=== PATIENT | female | born 1960 | race Hispanic/Latino ===

== ENCOUNTER 2018-08-03 10:06 | Emergency (ER) | payer OTHER, MEDICAID, SELFPAY ==
[2018-08-03 10:17] VITALS: BP 115/53; PULSE 82; RESP 16; TEMP 36.6; O2SAT 100
--- NOTE | 2018-08-03 10:32 | PC.NURSE ---
provider at bedside for eye exam.
--- NOTE | 2018-08-03 10:47 | ED.EYEPROB ---
HPI - Eye Problem General Chief complaint: Eye Problems Stated complaint: White film and pain Left eye Time Seen by Provider: 08/03/18 10:19 Source: patient Mode of arrival: ambulatory Limitations: no limitations History of Present Illness HPI Narrative: Patient is a 58-year-old female who presents with painful vision loss in her left eye. She says that for the last couple weeks she has had some eye twinges. However today she woke up and feels like pain is significantly worse. She has blurry vision out of that eye there is a definite ache in her eye. She does not feel like a curtain is closing she feels like it is blurry she feels like she sees a white spot around light. She is otherwise healthy. She denies any trauma. MD chief complaint: eye pain Related Data Previous Rx's Medication Instructions Recorded acetazolamide 250 mg PO TID #30 tab 08/03/18 prednisolone acetate 1 drop EYE-LEFT BID #10 ml 08/03/18 Review of Systems Review of Systems All systems reviewed & are unremarkable except as noted in HPI and below Eyes Reports as per HPI, Reports change in vision, Reports photophobia and Reports spots in vision Gastrointestinal Gastrointestinal: Denies abdominal pain, Denies change in bowel habits, Denies diarrhea, Denies nausea and Denies vomiting Musculoskeletal Denies back pain, Denies muscle weakness, Denies numbness and Denies tingling Neurologic Denies numbness and Denies tingling PFSH Social History Smoking Status: Former smoker Exam Initial Vital Signs Initial Vital Signs: Vital Signs Temperature 97.8 F 08/03/18 10:17 Pulse Rate 82 08/03/18 10:17 Respiratory Rate 16 08/03/18 10:17 Blood Pressure 115/53 L 08/03/18 10:17 Pulse Oximetry 100 08/03/18 10:17 Const General: healthy appearing Nutritional Appearance: average body habitus Orientation: alert, awake and oriented x3 HENMT Head: normal to inspection and normocephalic Eyes Periorbital: periorbital findings normal Conjunctivae: conjunctivae normal (Is stained with fluorescein no dye uptake) Pupils: dilated on the left EOM: EOM intact bilaterally Direct ophthalmoscopy: normal light reflex Other: Pressure in left eye 55, pressure in right eye 37 Bedside ultrasound of left eye did not reveal retinal detachment or vitreous humor tear Chest Chest: normal inspection of the chest and normal palpation of entire chest wall Resp Effort & Inspection: normal respiratory effort and able to speak in complete sentences Cardio Pulses: normal peripheral pulses Skin General: no rashes or lesions noted, No jaundice and No petechiae Neuro General: alert, awake, oriented x3 and deep tendon reflexes 2+ bilaterally Cranial Nerves: CN's II-XI intact bilaterally Course Orders Ordered: Discontinued Medications Acetazolamide (Diamox) 500 mg PO NOW ONE Stop: 08/03/18 11:02 Last Admin: 08/03/18 11:12 Dose: 500 mg Brimonidine/Timolol (Combigan 0.2%-0.5% Eye Drops) 1 drops EYE-BOTH NOW ONE Stop: 08/03/18 11:42 Last Admin: 08/03/18 11:58 Dose: 1 drops Brimonidine/Timolol (Combigan 0.2%-0.5% Eye Drops) 1 drops EYE-LEFT NOW ONE Stop: 08/03/18 12:26 Last Admin: 08/03/18 12:25 Dose: 1 drops Brimonidine/Timolol (Combigan 0.2%-0.5% Eye Drops) 1 drops EYE-LEFT NOW ONE Stop: 08/03/18 12:56 Last Admin: 08/03/18 12:55 Dose: 1 drops Dorzolamide HCl (Trusopt) 1 drops EYE-BOTH NOW ONE Stop: 08/03/18 12:24 Last Admin: 08/03/18 12:26 Dose: 1 drops Dorzolamide HCl (Trusopt) 1 drops EYE-LEFT NOW ONE Stop: 08/03/18 13:01 Last Admin: 08/03/18 13:00 Dose: 1 drops Latanoprost (Xalatan) 1 drops EYE-BOTH NOW ONE Stop: 08/03/18 11:48 Last Admin: 08/03/18 11:53 Dose: 1 drops Latanoprost (Xalatan) 1 drops EYE-LEFT NOW ONE Stop: 08/03/18 12:21 Last Admin: 08/03/18 12:20 Dose: 1 drops Latanoprost (Xalatan) 1 drops EYE-LEFT NOW ONE Stop: 08/03/18 12:51 Last Admin: 08/03/18 12:50 Dose: 1 drops Pilocarpine HCl (Isopto Carpine 2%) 1 drops EYE-LEFT Q30MIN AWA Stop: 08/06/18 11:16 Last Admin: 08/03/18 11:21 Dose: 1 drops Timolol Maleate (Timoptic 0.5%) 1 drops EYE-LEFT DAILY AWA Timolol Maleate (Timoptic 0.5%) 1 drops EYE-LEFT DAILY AWA Last Admin: 08/03/18 11:16 Dose: 1 drop Vital Signs - 8 hr 08/03/18 10:17 08/03/18 11:28 08/03/18 14:07 Temperature 97.8 F Pulse Rate 82 68 56 L Respiratory Rate 16 17 20 Blood Pressure 115/53 L Blood Pressure [Left Arm] 111/48 L 89/54 L Pulse Oximetry 100 100 100 08/03/18 14:30 Temperature Pulse Rate 61 Respiratory Rate 14 Blood Pressure Blood Pressure [Left Arm] 94/40 L Pulse Oximetry 100 MDM - Eye Problem MDM Narrative Medical decision making narrative: Dr. Montanez, ophthalmology at [facility] has been kind enough to consult for patient. Recommend Diamox 500 mg x1, timolol drop x1, Dorzolamide x 1 drop, latanoprost x1 drop. 1 drop every 5 min of each medication and then repeat pressure 15 min after. Unfortunately the 1st time around patient got timolol and pilocarpineand diamox. Repeat pressure at that time was 50 in the left eye and 27 in the right He was called with the results. 2nd time the patient got Combigan and xalatan, repeat pressure was 47 in the left 3rd time patient got Combigan, xalatan, truspot repeat pressure 39 in the left, 18 in the right-patient started being able to see and read overall her pain started feeling better. 4th time patient got Combigan, xalatan, truspot repeat pressure 27 than the left and 19 in the right updated on patient's of results. His he recommends discharging her on the medications along with prednisone acetate 1 drop twice a day. He requests to see patient tomorrow in his office in [place]. Patient overall continues to feel better At discharge patient's blood pressure did decrease quite a bit to the 70s. She was given food an oral fluids. At discharge it was 94 she overall felt better ready and able to go. Her eye felt the same. Discharge Plan Departure Patient Disposition: Home Clinical Impression: Acute angle-closure glaucoma of left eye Discharge Date/Time: 08/03/18 14:50 Interventions: ED Discharge Assessment Last Done: 08/03/18 14:49 Instructions: Angle-Closure Glaucoma Activity Restrictions/Additional Instructions: 7:[address]Jean Montanez's office in [place] [phone] for appointment tomorrow [id number] Diamox 250 mg 3 times a day Combigan (Brimonidine/timolol) 1 drop 3 times a day Trusopt (Dorzolamide) 1 drop 3 times a day Xalatan (Latanoprost) 1 drop at bedtime return to ER if you should have any worsening vision increased eye pain or any other concerning symptoms Prescriptions: New prednisolone acetate 1 % drops,suspension 1 drop EYE-LEFT BID Qty: 10 RF: 0 acetazolamide 250 mg tablet 250 mg PO TID Qty: 30 RF: 0 Referrals: [place] Montanez [Non-Staff] - Jj Monzon [Primary Care Provider] -
[2018-08-03] MEDS: acetaZOLAMIDE 250 MG TABLET 500 MG PO (11:12)
[2018-08-03] MEDS: TIMOLOL 0.5% OPHTH 1 DROPS EYE-LEFT (11:16)
[2018-08-03] MEDS: PILOCARPINE 2% OPHTH DROPS 15 ML 1 DROPS EYE-LEFT (11:21)
[2018-08-03 11:28] VITALS: BP 111/48; PULSE 68; RESP 17; O2SAT 100
[2018-08-03] MEDS: LATANOPROST 0.005% OPHTH 2.5 ML 1 DROPS EYE-BOTH (11:53)
[2018-08-03] MEDS: BRIMONIDINE/TIMOLOL 0.2%/0.5% OPHTH 5 ML 1 DROPS EYE-BOTH (11:58)
[2018-08-03] MEDS: LATANOPROST 0.005% OPHTH 2.5 ML 1 DROPS EYE-LEFT ×2 (12:20→12:50)
[2018-08-03] MEDS: BRIMONIDINE/TIMOLOL 0.2%/0.5% OPHTH 5 ML 1 DROPS EYE-LEFT ×2 (12:25→12:55)
[2018-08-03] MEDS: DORZOLAMIDE 2% OPHTH 10 ML 1 DROPS EYE-BOTH (12:26)
[2018-08-03] MEDS: DORZOLAMIDE 2% OPHTH 10 ML 1 DROPS EYE-LEFT (13:00)
[2018-08-03 14:07] VITALS: BP 89/54; PULSE 56; RESP 20; O2SAT 100
[2018-08-03 14:30] VITALS: BP 94/40; PULSE 61; RESP 14; O2SAT 100
== END 2018-08-03 14:50 | disposition home or self-care (01) ==
PROVIDERS: Emergency Provider Emergency Medicine; PCP Family Medicine
DX: H40.212 Acute angle-closure glaucoma, left eye (principal)
CPT/HCPCS: 99283

== ENCOUNTER 2020-03-01 04:14 | Emergency (ER) | payer OTHER, MEDICAID, SELFPAY ==
--- NOTE | 2020-03-01 04:19 | ED_ITS ---
HPI - Eye Problem General Chief complaint: Headache Stated complaint: PAIN THROUGH EYE AREA AROUND TO BACK OF HEAD Time Seen by Provider: 03/01/20 04:18 Source: patient Mode of arrival: Ambulatory Limitations: no limitations History of Present Illness HPI Narrative: 60F non smoker with history of acute angle closure glaucoma presents with the chief complaint of severe TOVAR with left eye pain over the course of the day. She denies any injury and states this feels somewhat like prior episodes of glaucoma, but perhaps a bit different. She admits that she hasn't been taking her meds regularly and had blurring of vision, pain, and a red eye earlier today and went to see her ophtho (Dr. Montanez in [place]) and her pressures were OS 30, OD 15. Her symptoms became much worse after the visit. She is nauseated but has not vomited. She does not wear contacts. She denies provocation or palliation. She has had some runny nose and maybe some post nasal drip, but is otherwise well and free of complaint. MD chief complaint: eye pain and vision change Onset (ago): hour(s) Onset description: unknown Duration: improved Location: left eye Eye Symptoms: decreased vision and blurry vision Mechanism: none Severity: moderate If Pain, Quality: aching Context: recent URI Associated symptoms: none Treatments Prior to Arrival: none Related Data Patient tetanus UTD: Yes Previous Rx's Medication Instructions Recorded acetazolamide 250 mg PO TID #30 tab 08/03/18 prednisolone acetate 1 drop EYE-LEFT BID #10 ml 08/03/18 prednisone See Rx Instructions .ROUTE 03/01/20 .COMPLEX #30 tab Allergies Allergy/AdvReac Type Severity Reaction Status Date / Time No Known Drug Allergies Allergy Verified 03/01/20 04:31 Review of Systems Constitutional Constitutional: Denies chills, Denies fatigue, Denies fever(s), Denies frequent falls, Denies lethargy and Denies weakness Eyes Eyes: Reports blurry vision, Reports change in vision, Denies eye discharge, Denies irritation and Denies loss of vision ENT Ears, Nose, Mouth, and Throat: Denies change in voice, Denies dizziness, Denies neck pain, Denies sore throat and Denies throat swelling Cardiovascular Cardiovascular: Denies chest pain, Denies irregular heart rhythm, Denies lightheadedness, Denies palpitations, Denies dyspnea, Denies dyspnea on exertion and Denies orthopnea Respiratory Respiratory: Denies cough, Denies dyspnea, Denies dyspnea on exertion and Denies wheezing Gastrointestinal Gastrointestinal: Denies abdominal pain, Denies change in bowel habits, Denies diarrhea, Denies nausea and Denies vomiting Musculoskeletal Musculoskeletal: Denies neck pain and Denies numbness Integumentary/Breasts Skin/Breast: Denies pruritus, Denies erythema, Denies rash and Denies wounds Neurologic Neurologic: Denies behavioral changes, Denies confusion, Denies dizziness, Denies frequent falls, Denies loss of vision, Denies numbness and Denies weakness Psychiatric Psychiatric: Denies anxiety, Denies behavioral changes, Denies confusion, Denies depression, Denies homicidal ideation and Denies suicidal ideation Endocrine Endocrine: Denies fatigue, Denies flushing and Denies palpitations Hematologic/Lymphatic Hematologic/Lymphatic: Denies easy bruising Allergic/Immunologic Allergic/Immunologic: Denies urticaria, Denies throat swelling and Denies wheezing Patient History Social History Smoking Status: Former smoker Smoking Status: Former smoker alcohol intake frequency: 0-2 drinks per day Substance Use Type: does not use Exam Narrative Exam Narrative: GENERAL: [60] year old patient appears stated age. Well- nourished, well-developed patient, in moderate distress. HEAD: Atraumatic. Normocephalic. EYES: Pupils equal round and reactive. Extraocular motions intact. No scleral icterus. No injection or drainage. Visual acuity noted in chart. Pressures with TonoPen (OS 35, OD 16) ENT: Nose without bleeding, purulent drainage. Throat without erythema, tonsillar hypertrophy or exudate. Airway patent. NECK: Trachea midline. Non tender CARDIOVASCULAR: Regular rate and rhythm without murmurs, gallops, or rubs. RESPIRATORY: Clear to auscultation. Breath sounds equal bilaterally. No wheezes, rales, or rhonchi. GASTROINTESTINAL: Abdomen soft, non-tender, nondistended. EXTREMITIES: No edema or joint tenderness. BACK: Nontender without deformity or crepitance. No flank tenderness. NEURO: AOx3. SKIN: No rash or erythema of visible areas Initial Vital Signs Initial Vital Signs: Vital Signs Temperature 97.9 F 03/01/20 04:20 Pulse Rate 66 03/01/20 04:20 Respiratory Rate 17 07/14/20 04:20 Blood Pressure 117/47 L 03/01/20 04:20 Pulse Oximetry 100 03/01/20 04:20 Course Orders Ordered: Discontinued Medications Dexamethasone (Decadron) 10 mg IV NOW ONE Stop: 03/01/20 05:14 Last Admin: 03/01/20 05:16 Dose: 10 mg Documented by: BETI Sodium Chloride (Normal Saline 0.9%) 1,000 mls @ 1,000 mls/hr IV BOLUS ONE Stop: 03/01/20 05:54 Last Infusion: 03/01/20 06:13 Dose: 0 mls/hr Documented by: Admin: 03/01/20 05:10 Dose: 1,000 mls/hr Documented by: [email or web address] Ketorolac Tromethamine (Toradol) 15 mg IV NOW ONE Stop: 03/01/20 04:56 Last Admin: 03/01/20 05:09 Dose: 15 mg Documented by: [email or web address] Metoclopramide HCl (Reglan) 10 mg IV NOW ONE Stop: 03/01/20 04:56 Last Admin: 03/01/20 05:08 Dose: 10 mg Documented by: [email or web address] Proparacaine HCl (Parcaine 0.5% Ophth Delilah) 1 drops EYE-LEFT NOW ONE Stop: 03/01/20 04:27 Last Admin: 03/01/20 04:35 Dose: 1 1000units Documented by: CHRIS Consultations Consultation #1: 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 He suggests she had iritis yesterday and agrees that she unlikely has glaucoma. Suggests therapies mentioned above (already given) but also add steroid taper. Will see her in the office later today Vital Signs Vital signs: Vital Signs - 8 hr 03/01/20 04:20 03/01/20 06:23 Temperature 97.9 F Pulse Rate 66 74 Respiratory Rate 17 17 Blood Pressure 117/47 L 115/57 L Pulse Oximetry 100 100 Discharge Plan Departure Patient Disposition: Home Clinical Impression: Headache Qualifiers: Headache type: unspecified Headache chronicity pattern: acute headache Intractability: not intractable Qualified Code(s): R51 - Headache Discharge Date/Time: 03/01/20 06:25 Instructions: DI for Headache, DI for Anterior Uveitis Activity Restrictions/Additional Instructions: *You have been diagnosed with [ headache and iritis] *What to do: *Take medications as directed: Prescription sent to [facility] at your request *Follow up with your framing mechanic Dr. Montanez later today, please call the office and let them know you were in the ED this morning and that Dr. Rodriguez (ED) spoke with Dr. Montanez and he wants to see you later today *Return to ER if you should have any new, worsening or concerning symptoms Prescriptions: New prednisone 10 mg tablet See Rx Instructions .ROUTE .COMPLEX Qty: 30 RF: 0 No Action prednisolone acetate 1 % drops,suspension 1 drop EYE-LEFT BID Qty: 10 RF: 0 acetazolamide 250 mg tablet 250 mg PO TID Qty: 30 RF: 0 Referrals: Jj Monzon [Primary Care Provider] -
[2020-03-01 04:20] VITALS: BP 117/47; PULSE 66; RESP 17; TEMP 36.6; O2SAT 100; BMI 24.9
[2020-03-01] MEDS: PROPARACAINE 0.5% OPHTH SOL 1 DROPS EYE-LEFT (04:35)
[2020-03-01] MEDS: METOCLOPRAMIDE 10 MG/2 ML INJ IV (05:08)
[2020-03-01] MEDS: KETOROLAC 60 MG/2 ML VIAL 15 MG IV (05:09)
[2020-03-01] MEDS: SODIUM CHLORIDE 0.9% 1,000 ML 1000 ML IV (05:10)
[2020-03-01] MEDS: DEXAMETHASONE 10 MG/ML VIAL IV (05:16)
--- NOTE | 2020-03-01 05:44 | PC.NURSE ---
0156 Pt took own Diamox and eye drops per order from Dr Rodriguez
[2020-03-01 06:23] VITALS: BP 115/57; PULSE 74; RESP 17; O2SAT 100
== END 2020-03-01 06:25 | disposition home or self-care (01) ==
PROVIDERS: Emergency Provider Emergency Medicine; PCP Family Medicine
DX: R51 Headache (principal); R11.0 Nausea; H57.12 Ocular pain, left eye; H53.8 Other visual disturbances
CPT/HCPCS: 36415; 96361; 96374; 96375; 99284; J1100; J1885; J2765

== ENCOUNTER → 2020-03-21 13:41 | Outpatient (CLI) | payer OTHER, MEDICAID, SELFPAY ==
--- NOTE | 2020-03-21 | DI.MRI.S_ITS ---
PROCEDURE: MR ANGIO HEAD WO CON INDICATIONS: Headache associated with sexual activity TECHNIQUE: Noncontrast axial 3-D [id number] MR angiogram, with 3-dimensional maximum intensity projection (MIP) reformats of the internal carotid arteries and posterior circulation then performed. COMPARISON: None. FINDINGS: Image quality: Excellent. Anterior circulation: Intracranial internal carotid arteries demonstrate normal size and intraluminal flow signal. The flow within the paired anterior cerebral arteries is normal and symmetric. The flow within the middle cerebral arteries is normal and symmetric. The anterior communicating artery is seen. No stenoses, occlusions, or aneurysms. Posterior circulation: Visualized portions of the vertebral arteries demonstrate normal caliber, and join to form a normal appearing basilar artery. The flow within the posterior cerebral arteries is normal and symmetric. No stenoses, occlusions, or aneurysms. IMPRESSION: Normal MRI angiogram of the head. Dictated by: Coral Alexander MD, PhD on 03/21/2020 at 15:25 Approved by: Coral Alexander MD, PhD on 03/21/2020 at 15:26
== END ==
PROVIDERS: PCP Family Medicine; Referring Provider Family Medicine; Visit Provider Family Medicine
DX: G44.82 Headache associated with sexual activity (principal)
CPT/HCPCS: 70544

== ENCOUNTER → 2021-06-08 13:07 | Outpatient (CLI) | payer OTHER, MEDICAID, SELFPAY | PROVIDERS: Referring Provider Internal Medicine; Visit Provider Internal Medicine | DX: Z23 Encounter for immunization (principal) | CPT/HCPCS: 90471; 90686 ==